=== PATIENT | female | born 1970 | race Two or more races ===

== ENCOUNTER 2022-12-08 18:20 | Emergency (ER) | payer OTHER ==
[~2022-12-08] VITALS: Ht 170.2 cm; Wt 72.6 kg
[2022-12-08 20:36] LABS: HEMATOCRIT 41.4 % (36.0-45.00); HEMOGLOBIN 12.9 g/dL (12.0-15.00); MEAN CELL VOLUME 77.3 fL (80.00-100.00); MEAN CORPUSCULAR HEMOGLOBIN 24.1 pg (27.00-32.0); MEAN CORPUSCULAR HGB CONC 31.2 g/dl (32.0-36.0); PLATELET COUNT 250 K/uL (150-450); RED BLOOD COUNT 5.35 M/uL (4.00-6.00); RED CELL DISTRIBUTION WIDTH 15.9 % (11.5-14.5)
[2022-12-08 21:01] LABS: PARTIAL THROMBOPLASTIN TIME 25.9 SECONDS (22.0-34.0)
[2022-12-08 21:06] LABS: ALBUMIN 3.4 gm/dL (3.4-5.0); BILIRUBIN TOTAL 0.31 mg/dL (0.3-1.2); CALCIUM 8.3 mg/dL (8.5-10.1); CREATININE SERUM 0.79 mg/dL (0.55-1.02); GFR 76.72; GLOBULINA 4.6 G/DL (2.4-3.5); POTASSIUM 4.05 mEq/L (3.5-5.1)
== END 2022-12-08 22:32 | disposition home or self-care (01) ==
LOC: ER 18:21
PROVIDERS: General Practice
DX: N83.299 Other ovarian cyst, unspecified side (principal); D25.9 Leiomyoma of uterus, unspecified; Z88.0 Allergy status to penicillin